=== PATIENT | female | born 1935 | race Two or more races ===

== ENCOUNTER 2017-04-11 13:12 | Inpatient (IN) | payer MEDICARE, MEDICAID ==
[~2017-04-11] VITALS: Ht 167.6 cm; Wt 103.2 kg
[~2017-04-11 13:12] MED LIST: AMLO2.5T PO; ASPI1CPM PO; CELE-85 PO; CHOL100044 PO; CLON0.5T4 PO; CYAN1TAB PO; DEXL60CA3 PO; DICL30AD TP; DOXE3TAB3 PO; EZET10TA PO; FLUT1DIS3 INH; FURO20TA4 PO; ICOS1CAP PO; LIDO30AD10 TP; LIPA1CAP15 PO; MECL-102 PO; MEMA1CAP3 PO; MIRT15TA7 PO; NEBI5TAB8 PO; OLAN2.5T3 PO; OLME1TAB3 PO; ONDA8TAB6 PO; PYRI50TA74 PO; RIVA10TA PO; ROPI0.253 PO; ROSU5TAB PO; SITA1TAB2 PO; TORS20TA3 PO; TRAM50TA2 PO
--- NOTE | 2017-04-11 13:20 | NUR ---
PT CAME IN FOR SEVERE ABDOMINAL/EPIGASTRIC PAIN, NAUSEA/VOMITING, HEADACHE ~ 1 MONTH. SEEN BY MD FOR EVAL. IV ACCESS STARTED. BLOOD DRAWN FOR LABS. PT MEDICATED ORDERED. FAMILY AT BS. SAFETY AND COMFORT MEASURES PROVIDED. WILL MONITOR.
[2017-04-11] MEDS ORDERED: FAMOTIDINE/PF INJ 20 MG/2 ML VIAL IV ONE ×2 (13:41→14:00)
[2017-04-11] MEDS ORDERED: ONDANSETRON HCL/PF 4 MG/2 ML VIAL ONE (13:41)
[2017-04-11 13:51] LABS: BASOPHILS % (AUTO) 0.3 % (0.0-2.0); EOSINOPHILS # (AUTO) 0.1 /CMM (0.0-0.7); EOSINOPHILS % (AUTO) 0.9 % (0.0-6.0); HEMATOCRIT 40 % (33-45); LYMPHOCYTES # (AUTO) 1.7 /CMM (0.8-4.8); LYMPHOCYTES % (AUTO) 15.2 % (20.0-44.0); MEAN CORPUSCULAR HEMOGLOBIN 24 PG (26.0-33.0); MEAN CORPUSCULAR HGB CONC 32 g/dl (31.0-36.0); MEAN CORPUSCULAR VOLUME 74 fL (82-100); MONOCYTES # (AUTO) 0.8 /CMM (0.1-1.30); MONOCYTES % (AUTO) 7.4 % (2.0-12.0); NEUTROPHILS # (AUTO) 8.9 /CMM (1.8-8.9); NEUTROPHILS % (AUTO) 76.2 % (43.0-81.0); PLATELET COUNT (AUTO) 323 /CMM (150-450); RDW COEFFICIENT OF VARIATION 16.1 (11.5-15.0); RED BLOOD CELL COUNT(AUTO) 5.44 MIL/uL (4.0-5.2); WHITE BLOOD COUNT (AUTO) 11.5 K/uL (4.3-11.0)
[2017-04-11] MEDS ORDERED: IV NS 0.9% 500 ML BAG IV ONE (14:00)
[2017-04-11] MEDS ORDERED: ONDANSETRON HCL/PF 4 MG/2 ML VIAL IVP ONE (14:00)
[2017-04-11 14:05] LABS: INR 1.28 (0.87-1.13); PROTHROMBIN TIME 13.3 SECS (9.5-12.7)
[2017-04-11 14:07] LABS: CALCIUM, SERUM 9.2 mg/dL (8.5-10.1); CARBON DIOXIDE 30 mmol/L (21-32); CHLORIDE 98 mmol/L (98-107); CREATININE 2.6 mg/dL (0.6-1.3); GLUCOSE 144 mg/dL (74-106); SODIUM SERUM 138 mmol/L (136-145); UREA NITROGEN, BLOOD 39 mg/dL (7-18)
[2017-04-11 14:13] LABS: ALANINE AMINOTRANSFERASE 36 U/L (12-78); ALBUMIN 3.5 g/dL (3.4-5.0); ALKALINE PHOSPHATASE 56 U/L (46-116); ASPARTATE AMINOTRANSFERASE 28 U/L (15-37); BILIRUBIN,DIRECT 0.1 mg/dL (0.0-0.2); BILIRUBIN,TOTAL 0.6 mg/dL (0.2-1.0); LIPASE 142 U/L (73-393); TOTAL PROTEIN, SERUM 7.6 g/dL (6.4-8.2)
--- NOTE | 2017-04-11 14:17 | NUR ---
FAMILY PHONE NUMBER (EX DAUGHTER IN LAW) - CELL [phone] Radha LOPEZ
--- NOTE | 2017-04-11 14:18 | NUR ---
FAMILY PHONE NUMBER (EX DAUGHTER IN LAW) - CELL [phone] - JESSICA - TO BE NOTIFIED WHEN THE PATIENT IS ADMITTED
[2017-04-11 14:22] LABS: TROPONIN I < 0.017 ng/mL (0.00-0.056)
[2017-04-11] MEDS ORDERED: PANTOPRAZOLE 40 MG VIAL ONE (14:26)
[2017-04-11] MEDS ORDERED: PANTOPRAZOLE 40 MG VIAL IV ONE (14:30)
[2017-04-11] MEDS ORDERED: IV NS 0.9% 1,000 ML BAG IV ONE (14:30)
--- NOTE | 2017-04-11 14:41 | NUR ---
CALLED [employer], WINDOWS LAPTOP TECHNICIAN WAS PAGED.
[2017-04-11] MEDS ORDERED: RIVA10TA PO (15:24)
--- NOTE | 2017-04-11 16:05 | NUR ---
REPORT GIVEN TO JOSH WALKER FOR JUAN 108
[2017-04-11 17:00] VITALS: BP 111/51
[2017-04-11] MEDS ORDERED: HYDROCODONE/APAP 5/325MG 1 EACH TABLET PO PRN (17:00)
[2017-04-11] MEDS ORDERED: MAGNESIUM HYDROXIDE 30 ML UDC PO PRN (17:00)
[2017-04-11] MEDS ORDERED: ONDANSETRON HCL/PF 4 MG/2 ML VIAL IVP PRN (17:00)
[2017-04-11] MEDS ORDERED: MAG HYDROX/AL HYDROX/SIMETH 30 ML UDC PO PRN (17:00)
[2017-04-11] MEDS ORDERED: Z GUARD REMEDY 2 OZ OINT TP PRN (17:00)
[2017-04-11] MEDS ORDERED: ZOLPIDEM TARTRATE 5 MG TABLET PO PRN (17:00)
[2017-04-11] MEDS ORDERED: ACETAMINOPHEN 325 MG TABLET PO PRN (17:00)
--- NOTE | 2017-04-11 17:00 | NUR ---
admitting note received patient via [facility]. Patient ambulatory with steady gait. breathing even and unlabored on room air. VS recorded- WNL. tele monitor reading sr 81, A+O x3, Faroese speaking only. translating nurse at bed side for assessment. 11/27 abdominal pain, no N/V at this time. under the care of Dr. Crisostomo who was paged upon patient's arrival. LAC IV patent, dressing CDI. oriented to unit. discussed plan of care. call light in reach
[2017-04-11 17:55] LABS: APPEARANCE,URINE SL CLOUDY (CLEAR); BILIRUBIN,URINE NEGATIVE (NEGATIVE); BLOOD, URINE 3+ Ery/uL (NEGATIVE); COLOR,URINE YELLOW (YELLOW); KETONES,URINE NEGATIVE (NEGATIVE); LEUKOCYTE ESTERASE ,URINE TRACE (NEGATIVE); NITRITE, URINE NEGATIVE (NEGATIVE); PROTEIN,URINE NEGATIVE (NEGATIVE); UGLUCOSE NEGATIVE (NEGATIVE); UROBILINOGEN,URINE 0.2 EU/dL (0.2)
[2017-04-11 18:14] LABS: BACTERIA,URINE Few /HPF (None Seen); SQUAMOUS EPITHELIAL CELL,UR Many /HPF (None Seen)
[2017-04-11] MEDS: IV NS 0.9% 1,000 ML IV PRN (19:47)
[2017-04-11 20:00] VITALS: BP 106/39
[2017-04-12] VITALS: BP 137/54
[2017-04-12 04:00] VITALS: BP 126/57
[2017-04-12 06:33] LABS: BASOPHILS % (AUTO) 0.4 % (0.0-2.0); EOSINOPHILS # (AUTO) 0.1 /CMM (0.0-0.7); EOSINOPHILS % (AUTO) 1.7 % (0.0-6.0); HEMATOCRIT 38 % (33-45); HEMOGLOBIN 12.2 g/dL (11.5-14.8); LYMPHOCYTES # (AUTO) 1.9 /CMM (0.8-4.8); LYMPHOCYTES % (AUTO) 24.7 % (20.0-44.0); MEAN CORPUSCULAR HEMOGLOBIN 24 PG (26.0-33.0); MEAN CORPUSCULAR HGB CONC 32 g/dl (31.0-36.0); MEAN CORPUSCULAR VOLUME 75 fL (82-100); MONOCYTES # (AUTO) 0.6 /CMM (0.1-1.30); MONOCYTES % (AUTO) 8.3 % (2.0-12.0); NEUTROPHILS # (AUTO) 4.9 /CMM (1.8-8.9); NEUTROPHILS % (AUTO) 64.9 % (43.0-81.0); PLATELET COUNT (AUTO) 243 /CMM (150-450); RDW COEFFICIENT OF VARIATION 17.4 (11.5-15.0); RED BLOOD CELL COUNT(AUTO) 5.05 MIL/uL (4.0-5.2); WHITE BLOOD COUNT (AUTO) 7.5 K/uL (4.3-11.0)
[2017-04-12 06:48] LABS: CALCIUM, SERUM 8.4 mg/dL (8.5-10.1); CARBON DIOXIDE 29 mmol/L (21-32); CHLORIDE 103 mmol/L (98-107); CREATININE 1.6 mg/dL (0.6-1.3); GLUCOSE 99 mg/dL (74-106); MAGNESIUM 1.5 mg/dL (1.8-2.4); PHOSPHORUS 4.3 mg/dL (2.5-4.9); POTASSIUM 2.9 mmol/L (3.5-5.1); SODIUM SERUM 141 mmol/L (136-145); UREA NITROGEN, BLOOD 30 mg/dL (7-18)
[2017-04-12 07:29] LABS: CHOLESTEROL 231 mg/dL (<200); HDL CHOLESTEROL 42 mg/dL (40-60); LDL 141 mg/dL (0-99); TRIGLYCERIDES 224 mg/dL (30-150)
[2017-04-12 08:00] VITALS: BP 148/56
[2017-04-12] MEDS: PANTOPRAZOLE 40 MG VIAL IV SCH (08:41)
[2017-04-12] MEDS: IV NS 0.9% 1,000 ML IV PRN (08:41)
[2017-04-12] MEDS ORDERED: CYANOCOBALAMIN PO SCH (09:00)
[2017-04-12] MEDS ORDERED: DEXTROSE 50%-WATER 50 ML DISP.SYRIN IV PRN (09:00)
[2017-04-12] MEDS ORDERED: POTASSIUM CHLORIDE 20 MEQ TAB.PRT.SR PO ONE (09:00)
[2017-04-12] MEDS ORDERED: PYRIDOXINE PO SCH (09:00)
[2017-04-12] MEDS ORDERED: [UNRECOGNIZED DRUG - OTHER] PO SCH (09:00)
[2017-04-12] MEDS: clonazePAM 0.5 MG TABLET PO SCH ×2 (09:00→11:09)
[2017-04-12] MEDS ORDERED: INSULIN REGULAR, HUMAN 100 UNIT/ML 3 ML VIAL SQ PRN (09:00)
[2017-04-12] MEDS: BLOOD SUGAR DIAGNOSTIC 1 EACH STRIP IN SCH ×4 (09:00→22:01)
--- NOTE | 2017-04-12 09:00 | NUR ---
RN NOTE PT ON BED, AOX3, NO SOB, CO FEELING BAD, NAUSEA AND DIZZINESS WHEN WALKING, PAIN IN UPPER STOMACH AFTER HAVING BREAKFAST. ZOFRAN OFFERED BUT PT REFUSED. WANTS TO SPEAK WITH GI DOCTOR YAN. WILL FOLLOW WITH MD AND MONITOR PT.
[2017-04-12] MEDS: EZETIMIBE 10 MG TABLET PO SCH (10:51)
[2017-04-12] MEDS: Magnesium 1GM/D5W 100ML PREMIX 100 ML IV SCH ×2 (10:51→12:07)
[2017-04-12] MEDS ORDERED: PEG 3350/NA SULF,BICARB,CL/KCL 4,000 ML BOTTLE PO ONE (15:00)
[2017-04-12 16:00] VITALS: BP 118/43
--- NOTE | 2017-04-12 19:30 | NUR ---
MS RN INITIAL NOTES RECEIVED PATIENT AWAKE A/OX3, ABLE TO MAKE NEEDS KNOWN, SCOTTISH SPEAKING. WITH OVERSEER KOSHER KITCHEN ASSISTANCE, PATIENT DENIES PAIN OR DISCOMFORT. DENIES N/V. SKIN WARM AND DRY TO TOUCH. DRINKING GOLYTELY PREP, MORE THAN HALF WAY DONE. SIDE RAILS UP AND LOCKED. BED KEPT AT LOWEST POSITION. CALL LIGHT KEPT WITHIN EASY REACH. WILL CONTINUE TO MONITOR.
[2017-04-12 20:00] VITALS: BP 164/61
--- NOTE | 2017-04-12 20:29 | NUR ---
NOTE PATIENT WITH BP 164/61, HAS HOME MEDICATION BYSTOLIC, FAMILY WILL BRING FROM HOME TOMORROW. INFORMED DR. AVERY REGARDING BP AND HOME MEDICATION. OK FOR METOPROLOL 25MG ONE TIME DOSE FOR TONIGHT. WILL CONTINUE TO MONITOR.
[2017-04-12] MEDS ORDERED: METOPROLOL TARTRATE 25 MG TABLET PO ONE (20:30)
--- NOTE | 2017-04-12 21:15 | NUR ---
MS RN NOTES PATIENT COMPLETED GOLYTELY, WITH BM BROWN, STILL WITH SEDIMENTS. WILL CONTINUE TO MONITOR.
[2017-04-12] MEDS: ATORVASTATIN 10 MG TABLET PO SCH ×3 (21:53→22:01)
[2017-04-12] MEDS ORDERED: Medication Not On Formulary EA (Rosuvastatin Calcium (Crestor) 5 MG) PO SCH (22:00)
--- NOTE | 2017-04-12 22:00 | NUR ---
PATIENT REFUSED LIPITOR, EXPLAINED RISKS AND BENEFITS WITH TRANSLATORS ASSISTANCE, PATIENT STILL REFUSED TO TAKE, STATED SHE WILL TAKE TOMORROW. WILL CONTINUE TO MONITOR.
[2017-04-12 22:41] VITALS: BP 138/51
[2017-04-13 04:00] VITALS: BP_SYST 135; BP_SYST 90; BP_DIAS 50; BP_DIAS 51
[2017-04-13 06:36] LABS: CARBON DIOXIDE 35 mmol/L (21-32); CHLORIDE 109 mmol/L (98-107); CREATININE 0.9 mg/dL (0.6-1.3); GLUCOSE 101 mg/dL (74-106); MAGNESIUM 1.9 mg/dL (1.8-2.4); PHOSPHORUS 2.6 mg/dL (2.5-4.9); POTASSIUM 3.5 mmol/L (3.5-5.1); SODIUM SERUM 145 mmol/L (136-145); UREA NITROGEN, BLOOD 15 mg/dL (7-18)
[2017-04-13] MEDS: IV NS 0.9% 1,000 ML IV PRN (06:41)
[2017-04-13 06:42] LABS: BASOPHILS % (AUTO) 0.3 % (0.0-2.0); EOSINOPHILS # (AUTO) 0.2 /CMM (0.0-0.7); EOSINOPHILS % (AUTO) 2.1 % (0.0-6.0); HEMATOCRIT 39 % (33-45); HEMOGLOBIN 12.6 g/dL (11.5-14.8); LYMPHOCYTES # (AUTO) 1.8 /CMM (0.8-4.8); LYMPHOCYTES % (AUTO) 22.3 % (20.0-44.0); MEAN CORPUSCULAR HEMOGLOBIN 24 PG (26.0-33.0); MEAN CORPUSCULAR HGB CONC 32 g/dl (31.0-36.0); MEAN CORPUSCULAR VOLUME 75 fL (82-100); MONOCYTES # (AUTO) 0.8 /CMM (0.1-1.30); MONOCYTES % (AUTO) 9.3 % (2.0-12.0); NEUTROPHILS # (AUTO) 5.5 /CMM (1.8-8.9); PLATELET COUNT (AUTO) 225 /CMM (150-450); RDW COEFFICIENT OF VARIATION 17.8 (11.5-15.0); RED BLOOD CELL COUNT(AUTO) 5.18 MIL/uL (4.0-5.2); WHITE BLOOD COUNT (AUTO) 8.3 K/uL (4.3-11.0)
[2017-04-13] MEDS: BLOOD SUGAR DIAGNOSTIC 1 EACH STRIP IN SCH ×4 (06:43→21:19)
--- NOTE | 2017-04-13 07:29 | NUR ---
MS RN CLOSING NOTES NO SIGNIFICANT CHANGES OVERNIGHT. BOWEL PREP WAS COMPLETED. BM WATERY, CLEAR. NO SOB. NO N/V. ALL NEEDS ANTICIPATED AND MET. IVF RUNNING. SIDE RAILS UP AND LOCKED. BED KEPT AT LOWEST POSITION. CALL LIGHT KEPT WITHIN EASY REACH. CONTINUITY OF CARE ENDORSED TO AM NURSE.
[2017-04-13 08:00] VITALS: BP 133/64
[2017-04-13] MEDS: EZETIMIBE 10 MG TABLET PO SCH (09:00)
--- NOTE | 2017-04-13 09:00 | NUR ---
RN NOTE PT IS UPSET THAT SHE IS NOT SCHEDULED FOR EGD/COLONOSCOPY TODAY, SHE DID HER PART TO PREP HER BOWELS, REQUESTS TO COMPLAIN TO [facility]CKRAM SEWER/DIRECTOR. WILL FOLLOW UP, AND MONITOR PT. SAFETY MEASURES IMPLEMENTED. VS STABLE
[2017-04-13] MEDS: PANTOPRAZOLE 40 MG VIAL IV SCH (09:19)
[2017-04-13] MEDS: clonazePAM 0.5 MG TABLET PO SCH (09:24)
[2017-04-13] MEDS: IV D5/ 0.9% NACL 1,000 ML IV SCH ×2 (14:22→21:26)
[2017-04-13 16:00] VITALS: BP 155/60
--- NOTE | 2017-04-13 18:45 | NUR ---
RN NOTE PT TAKEN FROM UNIT TO OR FOR EGD/COLONOSCOPY, VIA BED.
[2017-04-13] MEDS ORDERED: ANESTHESIA TRAY IN PYXIS 1 EA TRAY MC ONE (19:14)
[2017-04-13 20:00] VITALS: BP 127/37
--- NOTE | 2017-04-13 20:00 | NUR ---
PATIENT RETURNED FROM COLONOSCOPY/EGD TO THE ROOM, PATIENT WAS HELPED TO BED, VSS, AFEBRILE NO DISTRESS NOTED, DENIED PAIN. CALL LIGHT WITHIN REACH, CONTINUE TO MONITOR
[2017-04-13] MEDS: ATORVASTATIN 10 MG TABLET PO SCH (21:25)
--- NOTE | 2017-04-13 22:00 | NUR ---
SCHEDULED MEDS GIVEN, BS 111- NO COVERAGE EDUCATION/INSTRUCTIONS GIVEN, QUESTIONS ANSWERED. CONTINUE TO MONITOR
[2017-04-14 04:00] VITALS: BP 146/61
[2017-04-14 05:45] LABS: CALCIUM, SERUM 8.7 mg/dL (8.5-10.1); CARBON DIOXIDE 32 mmol/L (21-32); CHLORIDE 109 mmol/L (98-107); CREATININE 0.7 mg/dL (0.6-1.3); GLUCOSE 111 mg/dL (74-106); POTASSIUM 3.3 mmol/L (3.5-5.1); SODIUM SERUM 143 mmol/L (136-145); UREA NITROGEN, BLOOD 10 mg/dL (7-18)
[2017-04-14 06:02] LABS: BASOPHILS % (AUTO) 0.2 % (0.0-2.0); EOSINOPHILS # (AUTO) 0.1 /CMM (0.0-0.7); EOSINOPHILS % (AUTO) 1.9 % (0.0-6.0); HEMATOCRIT 38 % (33-45); HEMOGLOBIN 11.9 g/dL (11.5-14.8); LYMPHOCYTES # (AUTO) 1.5 /CMM (0.8-4.8); LYMPHOCYTES % (AUTO) 19.2 % (20.0-44.0); MEAN CORPUSCULAR HEMOGLOBIN 24 PG (26.0-33.0); MEAN CORPUSCULAR HGB CONC 32 g/dl (31.0-36.0); MEAN CORPUSCULAR VOLUME 76 fL (82-100); MONOCYTES # (AUTO) 0.6 /CMM (0.1-1.30); MONOCYTES % (AUTO) 8.2 % (2.0-12.0); NEUTROPHILS # (AUTO) 5.6 /CMM (1.8-8.9); NEUTROPHILS % (AUTO) 70.5 % (43.0-81.0); PLATELET COUNT (AUTO) 243 /CMM (150-450); RDW COEFFICIENT OF VARIATION 17.4 (11.5-15.0); RED BLOOD CELL COUNT(AUTO) 4.97 MIL/uL (4.0-5.2)
--- NOTE | 2017-04-14 07:30 | NUR ---
MS RN INITIAL NOTES RECEIVED PATIENT IN BED AWAKE A/OX3, ABLE TO MAKE NEEDS KNOWN, SOUTH KOREAN SPEAKING. WITH ELECTRICAL HELPER ASSISTANCE, PATIENT DENIES PAIN OR DISCOMFORT. DENIES N/V. SKIN WARM AND DRY TO TOUCH.SIDE RAILS UP AND LOCKED. BED KEPT AT LOWEST POSITION. CALL LIGHT KEPT WITHIN EASY REACH. WILL CONTINUE TO MONITOR.
[2017-04-14] MEDS: BLOOD SUGAR DIAGNOSTIC 1 EACH STRIP IN SCH ×2 (07:44→12:36)
[2017-04-14 08:00] VITALS: BP 167/63
[2017-04-14] MEDS: EZETIMIBE 10 MG TABLET PO SCH (09:04)
[2017-04-14] MEDS: PANTOPRAZOLE 40 MG VIAL IV SCH (09:04)
[2017-04-14] MEDS: clonazePAM 0.5 MG TABLET PO SCH (09:04)
[2017-04-14 12:00] VITALS: BP 167/63
[2017-04-14] MEDS ORDERED: POTASSIUM CHLORIDE 20 MEQ TAB.PRT.SR PO ONE (12:30)
--- NOTE | 2017-04-14 15:00 | NUR ---
pt is stable and no s/s of distress.breathing even and unlabored.d/c instructions and belongings provided to patient.
== END 2017-04-14 15:40 | disposition home or self-care (01) | DRG 391 ==
LOC: ER 13:15 → TELE1 15:41 → TELE-TD 15:49 → TELE1 18:42 → MEDSG1 04-12 08:11
PROVIDERS: ADMIT Internal Medicine; ATTEND Internal Medicine
PROC: 0DD68ZX Extraction of Stomach, Via Natural or Artificial Opening Endoscopic, Diagnostic (ICD-10-PCS; principal; 2017-04-13 19:07)
PROC: 0DBP8ZX Excision of Rectum, Via Natural or Artificial Opening Endoscopic, Diagnostic (ICD-10-PCS; 2017-04-13 19:07)
DX: K29.70 Gastritis, unspecified, without bleeding (principal); N17.0 Acute kidney failure with tubular necrosis; E44.0 Moderate protein-calorie malnutrition; E11.22 Type 2 diabetes mellitus with diabetic chronic kidney disease; E11.9 Type 2 diabetes mellitus without complications; D63.8 Anemia in other chronic diseases classified elsewhere; I48.0 Paroxysmal atrial fibrillation; E66.9 Obesity, unspecified; E78.5 Hyperlipidemia, unspecified; E87.6 Hypokalemia; I11.9 Hypertensive heart disease without heart failure; Z79.01 Long term (current) use of anticoagulants; Z79.82 Long term (current) use of aspirin; Z79.899 Other long term (current) drug therapy; Z88.0 Allergy status to penicillin; Z87.11 Personal history of peptic ulcer disease; I25.10 Atherosclerotic heart disease of native coronary artery without angina pectoris; K21.9 Gastro-esophageal reflux disease without esophagitis; Z90.49 Acquired absence of other specified parts of digestive tract; Z68.36 Body mass index [BMI] 36.0-36.9, adult; K62.1 Rectal polyp; K64.1 Second degree hemorrhoids; K59.00 Constipation, unspecified; K29.40 Chronic atrophic gastritis without bleeding; I12.9 Hypertensive chronic kidney disease with stage 1 through stage 4 chronic kidney disease, or unspecified chronic kidney disease; N18.9 Chronic kidney disease, unspecified
CPT/HCPCS: 36415; 71010-TC; 80048-TC; 80061-TC; 80076-TC; 81000-TC; 82962-TC; 83690-TC; 83735-TC; 84100-TC; 84484-TC; 85025-TC; 85730-TC; 86850-TC; 87081-TC; 88305-TC; 88313-TC; 88342; A4606; A6402; C9113; J1815; J2405; J2704; J3475; J3490; J7030; J7040; J7042; Z7610

== ENCOUNTER 2019-10-22 10:27 | Emergency (ER) | payer MEDICARE, OTHER ==
[~2019-10-22] VITALS: Ht 165.1 cm; Wt 86.2 kg
[~2019-10-22 10:27] MED LIST changes: -AMLO2.5T PO; -ASPI1CPM PO; -CELE-85 PO; -CYAN1TAB PO; +CYAN1TAB66 PO; -DICL30AD TP; -DOXE3TAB3 PO; -EZET10TA PO; +EZET10TA16 PO; -FLUT1DIS3 INH; -FURO20TA4 PO; -LIDO30AD10 TP; -LIPA1CAP15 PO; -MECL-102 PO; -MEMA1CAP3 PO; -MIRT15TA7 PO; -OLAN2.5T3 PO; +OLME1TAB22 PO; -OLME1TAB3 PO; -ONDA8TAB6 PO; -PYRI50TA74 PO; -RIVA10TA PO; -ROPI0.253 PO; -TORS20TA3 PO; -TRAM50TA2 PO
--- NOTE | 2019-10-22 11:00 | NUR ---
BIB ra c/o hematuria and diffused abdominal pain. on room air, breathing evenly and unlabored. connected to the monitor and pulse ox. kept comfortable, will continue to monitor accordingly.
[2019-10-22 11:03] LABS: BASOPHILS % (AUTO) 0.2 % (0.0-2.0); EOSINOPHILS % (AUTO) 0.6 % (0.0-6.0); HEMATOCRIT 39 % (33-45); HEMOGLOBIN 12.6 g/dL (11.5-14.8); LYMPHOCYTES # (AUTO) 0.9 /CMM (0.8-4.8); LYMPHOCYTES % (AUTO) 8.8 % (20.0-44.0); MEAN CORPUSCULAR HGB CONC 33 g/dl (31.0-36.0); MEAN CORPUSCULAR VOLUME 79 fL (82-100); MONOCYTES # (AUTO) 0.5 /CMM (0.1-1.30); MONOCYTES % (AUTO) 4.3 % (2.0-12.0); NEUTROPHILS # (AUTO) 9.1 /CMM (1.8-8.9); NEUTROPHILS % (AUTO) 86.1 % (43.0-81.0); PLATELET COUNT (AUTO) 244 /CMM (150-450); RED BLOOD CELL COUNT(AUTO) 4.91 MIL/uL (4.0-5.2); WHITE BLOOD COUNT (AUTO) 10.6 K/uL (4.3-11.0)
--- NOTE | 2019-10-22 11:05 | NUR ---
urine collected and sent to lab
[2019-10-22 11:06] LABS: APPEARANCE,URINE Slightly Cloudy (CLEAR); BILIRUBIN,URINE SMALL (NEGATIVE); BLOOD, URINE Large Ery/uL (NEGATIVE); COLOR,URINE Dark (YELLOW); KETONES,URINE Trace (NEGATIVE); LEUKOCYTE ESTERASE ,URINE Negative (NEGATIVE); NITRITE, URINE Negative (NEGATIVE); PH,URINE 5.5 (5.0-8.0); PROTEIN,URINE >=300 mg/dl (NEGATIVE); UGLUCOSE Negative (NEGATIVE); UROBILINOGEN,URINE 0.2 EU/dL (0.2)
[2019-10-22 11:16] LABS: RBC,URINE TOO NUMEROUS TO COUN /HPF (0-2)
[2019-10-22 11:18] LABS: BACTERIA,URINE None seen /HPF (None Seen); SQUAMOUS EPITHELIAL CELL,UR Few /HPF (None Seen); URINE AMORPHOUS URATE Moderate /HPF (None Seen)
[2019-10-22 11:20] LABS: CALCIUM, SERUM 8.9 mg/dL (8.5-10.1); CARBON DIOXIDE 30 mmol/L (21-32); CHLORIDE 101 mmol/L (98-107); CREATININE 1.3 mg/dL (0.6-1.3); GLUCOSE 122 mg/dL (74-106); POTASSIUM 3.4 mmol/L (3.5-5.1); SODIUM SERUM 140 mmol/L (136-145); UREA NITROGEN, BLOOD 25 mg/dL (7-18)
--- NOTE | 2019-10-22 11:20 | NUR ---
wheeled patient via [facility] for ct
[2019-10-22 11:23] LABS: ALANINE AMINOTRANSFERASE 26 U/L (12-78); ALBUMIN 3.4 g/dL (3.4-5.0); ALKALINE PHOSPHATASE 48 U/L (46-116); ASPARTATE AMINOTRANSFERASE 23 U/L (15-37); BILIRUBIN,DIRECT 0.2 mg/dL (0.0-0.2); BILIRUBIN,TOTAL 0.8 mg/dL (0.2-1.0); LIPASE 91 U/L (73-393); TOTAL PROTEIN, SERUM 6.9 g/dL (6.4-8.2)
[2019-10-22 13:03] VITALS: BP 135/71
--- NOTE | 2019-10-22 13:03 | NUR ---
Patient discharged to home in stable condition. Written and verbal after care instructions given. Patient verbalizes understanding of instruction.IV removed. Catheter intact and site benign. Pressure and 4x4 applied to site. No bleeding noted.
== END 2019-10-22 13:03 | disposition home or self-care (01) ==
LOC: ER 10:35
DX: N20.0 Calculus of kidney (principal); I10 Essential (primary) hypertension; I48.91 Unspecified atrial fibrillation; E11.9 Type 2 diabetes mellitus without complications; Z90.49 Acquired absence of other specified parts of digestive tract; Z98.890 Other specified postprocedural states; Z88.0 Allergy status to penicillin; Z79.899 Other long term (current) drug therapy
CPT/HCPCS: 36415; 71045-TC; 80048-TC; 80076-TC; 81000-TC; 83690-TC; 84484-TC; 85025-TC